=== PATIENT | female | born 1960 | race Caucasian/White ===

== ENCOUNTER 2016-04-17 10:28 | Emergency (ER) | payer BC ==
--- NOTE | 2016-04-17 10:52 | Emergency Department Record ---
History of Present Illness - General Chief Complaint: Chest Pain Stated Complaint: CHEST PAIN Time Seen by Provider: 04/17/16 10:51 Source: Patient Mode of Arrival: Ambulatory Limitations: No limitations - History of Present Illness Initial Comments: The patient is here due to a 24 hour hx of cough, congestion, sputum production , and CP when coughing. The pain is sharp and stabbing and is only present when coughing, twisting, bending or with palpation. She does have colored sputum but no blood. There is mild SOB with the coughing fits but none in between. She denies any fever, chills, ST or nasal congestion. The patient has had an CT 6 years ago in [place] but this pain is nothing like that. MD Complaint: Other Onset/Timin -: Hour(s) Onset: Other Pain Location: Substernal Pain Radiation: RUE Severity scale (1-10): 8 Quality: Sharp Consistency: Intermittent Improves With: Nothing Worsens With: Inspiration, Movement, Palpation, Other Other Symptoms: Cough Treatments Prior to Arrival: None - Related Data Previous Rx's Medication Instructions Recorded Albuterol Sulfate [Proair Hfa] 1 - 2 puff IH .EVERY 4-6 HOURS PRN 05/26/14 #1 inhaler Benzonatate [Tessalon] 1 cap PO Q8H PRN #20 cap 04/17/16 Doxycycline Monohydrate [Mondoxyne 100 mg PO BID #19 capsule 04/17/16 Nl] Prednisone [Prednisone 20Mg] 40 mg PO DAILY #8 tab 04/17/16 Allergies Allergy/AdvReac Type Severity Reaction Status Date / Time No Known Drug Allergies Allergy Verified 04/17/16 10:35 Travel Screening - Travel/Exposure Within Last 30 Days Have you traveled within the last 30 days?: No - Travel/Exposure Within Last Year Have you traveled outside the [place] in the last year?: No - Additonal Travel Details Have you been exposed to anyone with a communicable illness?: No - Travel Symptoms Symptom Screening: None Review of Systems Constitutional: Reports: Malaise. Denies: Chills, Fever Eyes: Denies: Eye discharge ENT: Reports: Congestion Respiratory: Reports: Cough. Denies: Dyspnea Cardiovascular: Denies: Arrhythmia Endocrine: Denies: Fatigue Past Medical History - SOCIAL HISTORY Smoking Status: Former smoker Alcohol Use: None Drug Use: None - RESPIRATORY Hx Respiratory Disorders: Yes Hx COPD: Yes - CARDIOVASCULAR Hx Cardio Disorders: Yes Hx Heart Attack: Yes - NEURO Hx Neuro Disorders: No - GI Hx GI Disorders: No - Hx Genitourinary Disorders: No - ENDOCRINE Hx Endocrine Disorders: No - MUSCULOSKELETAL Hx Musculoskeletal Disorders: No - PSYCH Hx Psych Problems: No - HEMATOLOGY/ONCOLOGY Hx Hematology/Oncology Disorders: No Family Medical History Any Significant Family History?: Yes Hx Cancer: Mother Physical Exam - General General Appearance: Alert, Oriented x3, Cooperative, No acute distress - Head Head exam: Atraumatic, Normocephalic, Normal inspection - Eye Eye exam: Normal appearance, PERRL - ENT Throat exam: Normal inspection. negative: Tonsillar erythema, Tonsillar exudate - Neck Neck exam: Normal inspection, Full ROM. negative: Tenderness - Respiratory Respiratory exam: Normal lung sounds bilaterally, Chest wall tenderness (The CP is 100% reproducible with palpation of the anterior chest wall.). negative: Decreased breath sounds, Respiratory distress, Rhonchi, Stridor - Cardiovascular Cardiovascular Exam: Regular rate, Normal rhythm, Normal heart sounds - GI/Abdominal GI/Abdominal exam: Soft, Normal bowel sounds. negative: Tenderness - Extremities Extremities exam: Normal inspection, Full ROM, Normal capillary refill. negative: Calf tenderness, Pedal edema, Tenderness Course Vital Signs 04/17/16 10:36 Temperature 98.1 F Pulse Rate 83 Respiratory 18 Rate Blood Pressure 139/103 Pulse Ox 95 - Reevaluation(s) Reevaluation #1: The patient is doing very well at this time. She is resting comfortably with no pain or SOB. She does still have the pain with coughing only. I did explain to her the xrays and lab tests are all WNL and there is no sign of any pneumonia. We will treat her for a COPD exacerbation with bronchitis and recommend F/U early next week. 04/17/16 12:06 04/17/16 12:26 Reevaluation #2: The patient is doing very well at this time. She is resting comfortably with clear lungs and no pain. 04/17/16 12:26 Medical Decision Making - Data Complexity MDM Data: Labs Ordered and/or Reviewed, X-Ray Ordered and/or Reviewed, EKG Ordered and/or Reviewed - Lab Data Result diagrams: 04/17/16 10:55 04/17/16 10:55 - EKG Data -: EKG Interpreted by Me EKG: No Acute Changes (NSR, LAFB, Old anteroseptal CT. No acute changes.) - Radiology Data Radiology results: Report reviewed (CXR: Neg) Disposition Disposition: Discharge Clinical Impression: Acute Bronchitis With Chronic Obstructive Pulmonary Disease (COPD) Disposition: Home, Self-Care Condition: (1) Good Instructions: Acute Bronchitis (ED) Additional Instructions: Please continue the inhaller at home and start the Prednisone and Doxycycline as directed. Please see your PCP for recheck early next week. Take Tylenol or Motrin for pain. Return to the ER for any increased cough, or any fever, Chest pain or trouble breathing. Prescriptions: Doxycycline Monohydrate [Mondoxyne Nl] 100 mg PO BID #19 capsule Prednisone [Prednisone 20Mg] 40 mg PO DAILY #8 tab Benzonatate [Tessalon] 1 cap PO Q8H PRN #20 cap PRN Reason: Cough Forms: Patient Portal Access Time of Disposition: 12:29
[2016-04-17 11:07] LABS: BASO % 0.2 % (0-6); EOS % 2.7 % (0-6); HEMATOCRIT 45.2 % (35.0-47.0); LYMPH % 25.6 % (16-45); MEAN CELL VOLUME 97.2 fl (81-97); MEAN CORPUSCULAR HEMOGLOBIN 32.3 pg (27-33); MEAN CORPUSCULAR HGB CONC 33.2 g/dl (32-36); MEAN PLATELET VOLUME 9.2 fl (7.4-10.4); MONO % 9.5 % (0-9); PLATELET COUNT 404 K/uL (130-400); RED BLOOD COUNT 4.65 M/uL (3.80-5.40); WHITE BLOOD COUNT W/O DIFF 9.5 K/uL (4.2-12.2)
[2016-04-17] MEDS ORDERED: IPRATROPIUM/ALBUTEROL (0.5MG/3MG) NEB INH ONE (11:08)
[2016-04-17] MEDS ORDERED: METHYLPREDNISOLONE PF 125MG/VIAL IVP ONE (11:09)
[2016-04-17 11:34] LABS: ANION GAP 14.2 (7-16); BLOOD UREA NITROGEN 15 mg/dL (7-17); CARBON DIOXIDE 26.8 mmol/L (22-30); CREATINE PHOSPHOKINASE 152 U/L (30-135); CREATININE 0.7 mg/dL (0.52-1.04); EST GLOMERULAR FILTRATION RATE > 60 ml/min; GLUCOSE,RANDOM 104 mg/dL (70-110)
[2016-04-17 11:46] LABS: CKMB 1.9 ug/L (0-6)
[2016-04-17 11:48] LABS: TROPONIN I < 0.012 ng/mL (0.00-0.034)
[2016-04-17] MEDS ORDERED: DOXYCYCLINE HYCLATE 100 MG CAPSULE PO ONE (12:03)
--- NOTE | 2016-04-18 10:46 | RADIOLOGY REPORT ---
EXAM: CHEST, TWO VIEWS HISTORY: COUGH. TECHNIQUE: Frontal and lateral views of the chest were obtained. Comparison: None. FINDINGS: The heart size is normal. Mild atheromatous change of the thoracic aorta. The lungs are clear. No pneumothorax. IMPRESSION: NO ACUTE CARDIOPULMONARY PROCESS. JOB NUMBER: [id number] MTDD
== END 2016-04-17 12:38 | disposition home or self-care (01) ==
LOC: ER 10:28
DX: J44.0 Chronic obstructive pulmonary disease with (acute) lower respiratory infection (principal); J20.9 Acute bronchitis, unspecified; R07.2 Precordial pain; I25.2 Old myocardial infarction; Z87.891 Personal history of nicotine dependence
CPT/HCPCS: 71020; 80048; 82550; 82553; 84484; 85025; 93005; 93010; 94640; 99284; J2930